=== PATIENT | female | born 1940 | race Caucasian/White ===

== ENCOUNTER 2016-11-13 16:44 | Emergency (ER) | payer MEDICARE, OTHER ==
[2016-11-13 17:20] LABS: BASOPHIL# 0.1 X 10^3uL (0.0-0.1); BASOPHILS 1.1 % (0.0-2.0); EOSINOPHILS 0.5 % (0.0-6.0); HEMATOCRIT 42.8 % (36.0-48.0); HEMOGLOBIN 14.7 g/dL (12.0-16.0); LYMPHOCYTES 6.8 % (20.0-40.0); LYMPHOCYTES# 0.5 X 10^3uL (0.8-3.8); MEAN CORPUS. HGB CONCENTRATION 34.4 g/dL (32.0-36.0); MEAN CORPUSCULAR HEMOGLOBIN 29.5 pg (29.0-35.0); MEAN PLATELET VOLUME 7.8 fL (7.4-10.4); MONOCYTES 4.5 % (2.0-10.0); MONOCYTES# 0.3 X 10^3uL (0.2-1.0); NEUTROPHILS# 6.7 X 10^3uL (2.6-6.7); PLATELET COUNT 301 X 10^3uL (130-440); RED BLOOD COUNT 4.98 X 10^6uL (4.20-6.10); RED CELL DISTRIBUTION WIDTH 14.1 % (11.5-14.5); WHITE BLOOD COUNT 7.6 X 10^3uL (3.9-10.7)
[2016-11-13 17:34] LABS: ALBUMIN 4.7 g/dL (3.5-5.0); ALKALINE PHOSPHATASE 52 U/L (38-126); ALT 33 U/L (9-52); AST 35 U/L (14-36); BILIRUBIN, DIRECT 0.1 mg/dL (0.0-0.4); BILIRUBIN, TOTAL 0.8 mg/dL (0.2-1.3); BLOOD UREA NITROGEN 20 mg/dL (7-17); CALCIUM 9.4 mg/dL (8.4-10.2); CHLORIDE 104 mmol/L (98-107); CREATININE 0.9 mg/dL (0.5-1.0); EST GLOMERULAR FILTRATION RATE > 60 mL/min; GLUCOSE 108 mg/dL (70-100); LIPASE 166 U/L (23-300); NEUTROPHILS 87.1 % (54.0-75.0); POTASSIUM 3.8 mmol/L (3.5-5.1); SODIUM 143 mmol/L (137-145); TOTAL PROTEIN 8.3 g/dL (6.3-8.2)
[2016-11-13] MEDS ORDERED: ONDANSETRON HCL 4 MG/2 ML VIAL ONE (17:47)
--- NOTE | 2016-11-13 18:37 | CT REPORT ---
HISTORY: Lower abdominal tenderness. History of small bowel obstruction. COMPARISON: 03/02/2016 TECHNIQUE: This examination was performed using automated exposure control, adjustment of mA or kV according to patient size, and/or use of iterative reconstruction technique. Multiple contiguous axial images were obtained from the lung bases through the pubic symphysis following administration of intravenous con trast. 100cc Isovue-300 contrast. FINDINGS: The visualized lung parenchyma and cardiac structures are unremarkable. Abdomen/pelvis: The liver is within normal limits. There is no intrahepatic ductal dilatation. The ex trahepatic duct is similarly dilated up to 9 mm. The gallbladder is unremarkable, there is no cholel ithiasis or pericholecystic fluid. The spleen is normal in appearance. The main pancreatic duct appears mildly dilated, however this finding has not changed since prior palma ging and 2016. Pancreas parenchyma enhances normally. The adrenal glands are unremarkable. The kidn eys are equal in size and enhancement. The right collecting system is minimally prominent with no hayley nstream obstructing lesion identified. A circumscribed partially exophytic hypoattenuating cyst from the right kidney is unchanged. The stomach and small bowel are nondilated and nonthickened. The appendix appears surgically absent. There is abundant stool noted throughout the colon. No evidence of ascites, adenopathy, pneumatosis o r free air. No significant free fluid is noted. There is no mesenteric edema or inflammatory process. The abdominal aorta is not aneurysmal. There i s mild prominence of the left ovarian and periuterine veins. This is unchanged. Previously noted righ t adnexal cystic structure is no longer seen. No pathologic adenopathy is identified. No suspicious bony lesions are seen. IMPRESSION: 1. Moderate constipation. 2. Mild extra hepatic and main pancreatic ductal dilatation is unchanged from comparison imaging. 3. Mildly prominent right collecting system without evidence of obstructing stone. 4. Previously demonstrated right adnexal cystic structure is no longer seen. Results were discussed with Dr. Gardiner via phone on 11/13/2016 6:[address] Pope. A critical read b ack occurred. Final Electronic Signature: This report was electronically signed by Shon Pope MD on 11/13/2016 6: 35 PM. dwells /
--- NOTE | 2016-11-13 19:16 | ER NURSING DOCUMENTATION ---
Nurse's Notes Name:Gypsy Rosales Age:76 yrs Sex:Female :1940 Arrival Date:11/13/2016 Time:16:44 BedTrauma-B Private MD:Lluvia Horner Diagnosis:Constipation Presentation: 11/13 16:50 Acuity: KENNA 2 tg 17:02 Presenting complaint: Patient states: Nausea, vomiting. Transition of care: Home. lp Notified ED Physician of Dr. Gardiner notified. 17:02 Method Of Arrival: Private Vehicle lp Triage Assessment: 17:09 General: Appears in no apparent distress, Behavior is appropriate for age. Pain: lp Complains of pain in right lower quadrant and left lower quadrant. EENT: No deficits noted. Neuro: No deficits noted. Cardiovascular: No deficits noted. Respiratory: No deficits noted. GI: Abdomen is flat, non- distended Bowel sounds present X 4 quads. Abdomen is tender to palpation in right lower quadrant and left lower quadrant Reports nausea, vomiting. : No deficits noted. Derm: No deficits noted. Musculoskeletal: No deficits noted. Historical: - Allergies: oral contrast; - PMHx: OSTEOPOROSIS; Supraventricular tachycardia; MIGRAINES; small bowel obstruction; ovarian mass; hyperlipidemia; lumbar radiculopathy; raynauds; pericarditis; GOUT; PVD; - PSHx: Microdiscectomy; Cardiac ablation; diagnostic laparotomy; melanoma excision; - Tetanus: < 10 years. - Ebola Screening: : Patient negative for fever greater than or equal to 101.5 degrees Fahrenheit, and additional compatible Ebola Virus Disease symptoms. Patient denies exposure to infectious person. Patient denies travel to an Ebola-affected area in the 21 days before illness onset. . - Immunization history: Pneumococcal vaccine is up to date, Flu Vaccine < 1 year. - Social history: Smoking status: Patient states was never smoker of tobacco. Screenin:11 Infectious Disease Risk None. Abuse screen: Denies threats or abuse. Denies injuries lp from another. Nutritional screening: No deficits noted. Assessment: 17:11 See Triage Assessment done by same RN. lp 18:21 GI: Reports nausea, Does not want any other meds until CT results are back. tg Vital Signs: 16:56 BP 134 / 75; Pulse 90; Resp 16; Temp 97.7(O); Pulse Ox 96% on R/A; Weight 58.97 kg; lp Height 5 ft. 4 in. (162.56 cm); Pain 5/10; 19:15 BP 136 / 60; Pulse 74; Resp 18; Temp 98.3; Pulse Ox 97% on R/A; Pain 0/10; bw2 16:56 Body Mass Index 22.31 (58.97 kg, 162.56 cm) lp ED Course: 16:45 Patient arrived in ED. ds 16:45 Lluvia Horner MD is Private Physician. ds 16:50 Triage completed. tg 16:57 John Gardiner MD is Attending Physician. tl1 17:02 Heather Delgado RN is Primary Nurse. lp 17:[address] Gardiner notified. lp 17:11 Valuables Remains with patient Patient has correct armband on for positive lp identification. Placed in gown. Bed in low position. Call light in reach. 17:15 Inserted peripheral IV: 20 gauge in left forearm. tg 18:57 Lluvia Horner MD is Referral Physician. tl1 Administered Medications: 17:42 Drug: Zofran 4 mg; Route: IVP; Infused Over: 2 mins; Site: left forearm; tg 18:21 Follow up: Response: No adverse reaction; No change in condition tg 17:42 Drug: NS 0.9% 500 ml; Route: IV; Rate: 500 ml/hr; Site: left forearm; Delivery: Pump; tg Outcome: 18:58 Discharge ordered by . tl1 19:15 Discharged to home ambulatory. bw2 19:15 Condition: good 19:15 Discharge instructions given to patient, significant other, Instructed on discharge instructions, follow up and referral plans. Demonstrated understanding of Prescriptions given X 1. 19:15 Patient left the ED. bw2 0602 10:09 Discharge F/U Call: Unable to reach: no answer st Signatures: Marc Gonzalez RN RN tg Jessica Macedo RN RN st Pavlish, Lena, RN RN lp ot, Amirah, Reg Reg ds Peyton Sexton ms John Gardiner MD MD tl1 [facility]
--- NOTE | 2016-11-13 19:16 | ER PHYSICIAN DOCUMENTATION ---
Physician Documentation [facility] Name:Gypsy Rosales Age:76 yrs Sex:Female :1940 Arrival Date:11/13/2016 Time:16:44 BedTrauma-B Private MD:Lluvia Horner EDZuleyka John Disposition: 11/14 12:41 Chart complete. tl1 Disposition: 11/13/16 18:58 Discharged to Home/Self Care. Impression: Constipation. - Condition is Good. - Discharge Instructions: CONSTIPATION (Adult), NAUSEA VOMITING 6yAdult - VOMITING (6y-Adult). - Prescriptions for Phenergan 12.5 mg Oral tablet - take 1 tablet by ORAL route 4 times per day NEEDED FOR NAUSEA AND VOMITING; 15 tablet. - Medical Reconciliation form form. - Follow up: Lluvia Horner MD; When: 4- 6 days; Reason: Recheck today's complaints, Continuance of care. - Problem is new. - Symptoms have improved. - Notes: DRINK 1/2 BOTTLE OF MAGNESIUM CITRATE EVERY 6-8 HOURS UNTIL YOU HAVE A GOOD BM. HPI: 11/13 16:57 This 76 yrs old Female presents to ER with complaints of abdominal pain. tl1 16:57 The patient presents with abdominal pain. Onset: The symptoms/episode began/occurred tl1 gradually. 17:00 She has had prior abdominal surgery related to a large benign ovarian mass. About a tl1 year ago she had a bowel obstruction. She is now worried that she has another bowel obstruction. She was fine until this morning when she developed nausea and a bloated sensation. She did have a small BM initially this AM and then two more, with little improvement in her symptoms. She says she has chronic lower abdominal discomfort and she is unchanged from that perspective. Denies hematemesis, melena or hematochezia. No f/c/s. No urinary symptoms.. Historical: - Allergies: oral contrast; - PMHx: OSTEOPOROSIS; Supraventricular tachycardia; MIGRAINES; small bowel obstruction; ovarian mass; hyperlipidemia; lumbar radiculopathy; raynauds; pericarditis; GOUT; PVD; - PSHx: Microdiscectomy; Cardiac ablation; diagnostic laparotomy; melanoma excision; - Tetanus: < 10 years. - Ebola Screening: : Patient negative for fever greater than or equal to 101.5 degrees Fahrenheit, and additional compatible Ebola Virus Disease symptoms. Patient denies exposure to infectious person. Patient denies travel to an Ebola-affected area in the 21 days before illness onset. . - Immunization history: Pneumococcal vaccine is up to date, Flu Vaccine < 1 year. - Social history: Smoking status: Patient states was never smoker of tobacco. ROS: 17:00 Abdomen/GI: Positive for nausea, vomiting, abdominal distension, Negative for abdominal tl1 cramps, flatulence. Exam: 17:00 Constitutional: This is a well developed, well nourished patient who is awake, alert, tl1 and in no acute distress. Head/Face: Normocephalic, atraumatic. ENT: Nares patent. No nasal discharge, no septal abnormalities noted. Tympanic membranes are normal and external auditory canals are clear. Oropharynx with no redness, swelling, or masses, exudates, or evidence of obstruction, uvula midline. Mucous membranes moist. Cardiovascular: Regular rate and rhythm with a normal S1 and S2. No gallops, murmurs, or rubs. Normal PMI, no JVD. No pulse deficits. 17:00 Respiratory: Lungs have equal breath sounds bilaterally, clear to auscultation and tl1 percussion. No rales, rhonchi or wheezes noted. No increased work of breathing, no retractions or nasal flaring. 17:00 Abdomen/GI: Inspection: distension, that is mild, Bowel sounds: diminished, Palpation: soft, mild abdominal tenderness, in all quadrants, mass, is not appreciated, rebound tenderness, is not appreciated, voluntary guarding, is not appreciated, Liver: no appreciated palpable abnormalities. 17:00 Musculoskeletal/extremity: Exam is negative for acute changes. 17:00 Skin: Exam negative for acute changes. 17:00 Neuro: Exam negative for acute changes. Vital Signs: 16:56 BP 134 / 75; Pulse 90; Resp 16; Temp 97.7(O); Pulse Ox 96% on R/A; Weight 58.97 kg; lp Height 5 ft. 4 in. (162.56 cm); Pain 5/10; 19:15 BP 136 / 60; Pulse 74; Resp 18; Temp 98.3; Pulse Ox 97% on R/A; Pain 0/10; bw2 16:56 Body Mass Index 22.31 (58.97 kg, 162.56 cm) lp MDM: 16:56 Patient medically screened. tl1 18:00 Differential diagnosis: appendicitis, bowel obstruction, diverticulitis, Mesenteric tl1 ischemia or infarction, pancreatitis, constipation. Data reviewed: and as a result, I will discharge patient. Counseling: I had a detailed discussion with the patient and/or guardian regarding: the historical points, exam findings, and any diagnostic results supporting the discharge/admit diagnosis, lab results, radiology results, the need for outpatient follow up, to return to the emergency department if symptoms worsen or persist or if there are any questions or concerns that arise at home. Medication response: The patient's symptoms have improved. Response to treatment: the patient's symptoms have mildly improved after treatment, and as a result, I will discharge patient. ED course: Mild improvement. She was reassured by the normal CT, and that it appears at this time like her symptoms may be related to constipation.. 11/13 17:35 Order name: CBC AUTO DIF, MDIF/RMOR IF IND; Complete Time: 12:12 EDMS 11/14 12:10 Interpretation: WHITE BLOOD COUNT 7.6; HEMOGLOBIN 14.7; HEMATOCRIT 42.8; PLATELET COUNT tl1 301; NEUTROPHILS 87.1. 11/13 17:36 Order name: BASIC METABOLIC PANEL; Complete Time: 12:12 EDMS 11/14 12:10 Interpretation: SODIUM 143; POTASSIUM 3.8; CHLORIDE 104; CARBON DIOXIDE 24; GLUCOSE tl1 108; BLOOD UREA NITROGEN 20; CREATININE 0.9; CALCIUM 9.4. 11/13 17:36 Order name: HEPATIC PANEL; Complete Time: 12:12 EDMS 11/14 12:10 Interpretation: Normal: ALT 33; ALBUMIN 4.7; ALKALINE PHOSPHATASE 52; AST 35; tl1 BILIRUBIN, TOTAL 0.8; BILIRUBIN, DIRECT 0.1; TOTAL PROTEIN 8.3. 11/13 17:36 Order name: LIPASE; Complete Time: 12:12 EDMS 11/14 12:10 Interpretation: Normal: LIPASE 166. tl1 11/13 18:39 Order name: CAT SCAN; ABD/PEL W 07958; Complete Time: 12:12 EDMS 11/14 12:11 Interpretation: NAD. SEE REPORT. tl1 Dispensed Medications: 17:42 Drug: Zofran 4 mg; Route: IVP; Infused Over: 2 mins; Site: left forearm; tg 18:21 Follow up: Response: No adverse reaction; No change in condition tg 17:42 Drug: NS 0.9% 500 ml; Route: IV; Rate: 500 ml/hr; Site: left forearm; Delivery: Pump; tg Signatures: Marc Gonzalez RN RN tg Heather Delgado RN RN lp Leigh, Tom, MD MD 1 [facility]
== END 2016-11-13 19:16 | disposition home or self-care (01) ==
LOC: ER 16:44
DX: K59.00 Constipation, unspecified (principal); R11.2 Nausea with vomiting, unspecified; R14.0 Abdominal distension (gaseous)
CPT/HCPCS: 74177; 80048; 80076; 83690; 85025; 96374; 99283; 99284; J2405